=== PATIENT | female | born 1950 | race Caucasian/White ===

== ENCOUNTER → 2018-07-06 01:39 | Outpatient (CLI) | payer MEDICARE, OTHER, SELFPAY ==
--- NOTE | 2018-07-06 12:54 | DI.REPORT_ITS ---
SYMPTOM/DIAGNOSIS: SCREENING, Z12.31 BILATERAL SCREENING MAMMOGRAM: Mammograms were interpreted according to the usual protocol including computer analysis with CAD system, tomosynthesis and C view imaging. Comparison is made with exams from 2010 through 2016. The breasts are composed of extremely dense fibroglandular tissue breast density category D. No suspicious masses or suspicious microcalcifications are seen. There has been no significant change. IMPRESSION: Category 1-D, negative mammogram. Yearly screening mammography is recommended. [facility] ASSESSMENT OF FINDINGS: Negative. Category 1. Patient will receive a letter notifying them of these results. BI-RADS category D. The breasts are extremely dense, which lowers the sensitivity of mammography.
--- NOTE | 2018-07-06 12:54 | DI.REPORT_ITS ---
SYMPTOM/DIAGNOSIS: NECK PAIN CERVICAL SPINE: There are severe degenerative disc changes at C 4-5, C 5-6 and C 6-7. There are prominent facet degenerative changes, greatest at C 7-T 1 which causes mild spondylolisthesis. Moderate degenerative changes are seen at C 3-4. Neural foraminal narrowing is seen on the left at C 2-3 secondary to facet encroachment. Neural foraminal narrowing is seen on the right at C 4-5, C 5-6 and C 7-T 1. Degenerative changes are also noted at C 1-2. IMPRESSION: Severe degenerative disc changes and facet degenerative changes.
[2018-07-06 15:53] LABS: ALT 30 U/L (12-78); AST 33 U/L (15-37); Albumin 3.7 g/dL (3.4-5.0); Alkaline Phosphatase 100 U/L (46-116); Anion Gap 10.4 mmol/L (3-11); BUN 16 mg/dL (7-18); Bilirubin, Total 0.3 mg/dL (0.2-1.0); CO2 27.6 mmol/L (21.0-32.0); CREATININE 0.82 mg/dL (0.55-1.02); Calcium 8.9 mg/dL (8.5-10.1); Chloride 94 mmol/L (98-107); Cholesterol 167 mg/dL (50-200); Glucose 91 mg/dL (70-100); HDL Cholesterol 84 mg/dL (40-60); LDL CHOLESTEROL 72 mg/dL (<100); Potassium 3.6 mmol/L (3.5-5.1); Sodium 132 mmol/L (136-145); Total Protein 6.7 g/dL (6.4-8.2); Triglyceride 55 mg/dL (30-150)
== END ==
DX: M54.2 Cervicalgia (principal); M50.322 Other cervical disc degeneration at C5-C6 level; M47.813 Spondylosis without myelopathy or radiculopathy, cervicothoracic region; Z12.31 Encounter for screening mammogram for malignant neoplasm of breast; I10 Essential (primary) hypertension; Z13.220 Encounter for screening for lipoid disorders
CPT/HCPCS: 72050; 77063; 77067; 36415; 80053; 80061; 83721

== ENCOUNTER 2020-08-22 21:23 | Outpatient (REF) | payer MEDICARE, OTHER, SELFPAY ==
[2020-08-22 21:57] LABS: Bilirubin Negative (Negative); Blood Trace-intact (Negative); Clarity Clear (Clear); Glucose Negative (Negative); Ketones Negative (Negative); Leukocyte Esterase Trace (Negative); Nitrite Negative (Negative); Specific Gravity 1.015 (1.005-1.025); Urobilinogen 0.2 EU/dL (Up TO 0.2)
[2020-08-22 22:15] LABS: Bacteria Rare HPF (Negative); C & S Indicated? No; Casts Negative LPF (Negative); Crystals Negative HPF (Negative); Epithelial Cells Negative HPF (Negative); Mucus Negative (Negative); Other Cells Negative (Negative); RBC 0-2 HPF (0-2); WBC 0-2 HPF (0-5)
== END 2020-08-22 21:43 ==
LOC: LBN 21:23
DX: R35.0 Frequency of micturition (principal)
CPT/HCPCS: 81003; 81015

== ENCOUNTER 2022-03-13 04:21 | Outpatient (CLI) | payer MEDICARE, OTHER, SELFPAY ==
[2022-03-13 13:20] LABS: ALT 34 U/L (14-59); AST 34 U/L (15-37); Albumin 3.7 g/dL (3.4-5.0); Alkaline Phosphatase 102 U/L (46-116); Anion Gap 4.7 mmol/L (3-11); BUN 18 mg/dL (7-18); Bilirubin, Total 0.4 mg/dL (0.2-1.0); CO2 29.3 mmol/L (21.0-32.0); CREATININE 0.8 mg/dL (0.55-1.02); Calcium 8.8 mg/dL (8.5-10.1); Chloride 90 mmol/L (98-107); Glucose 78 mg/dL (74-106); Potassium 4.6 mmol/L (3.5-5.1); Total Protein 6.4 g/dL (6.4-8.2)
[2022-03-13 14:04] LABS: Sodium 124 mmol/L (136-145)
== END 2022-03-13 04:22 | disposition home or self-care (01) ==
DX: I10 Essential (primary) hypertension (principal); Z00.00 Encounter for general adult medical examination without abnormal findings
CPT/HCPCS: 36415; 80053

== ENCOUNTER 2022-06-10 04:29 | Outpatient (CLI) | payer MEDICARE, OTHER, SELFPAY ==
[2022-06-10 12:34] LABS: Anion Gap 8.1 mmol/L (3-11); BUN 21 mg/dL (7-18); CO2 27.9 mmol/L (21.0-32.0); CREATININE 0.9 mg/dL (0.55-1.02); Calcium 9.2 mg/dL (8.5-10.1); Chloride 100 mmol/L (98-107); Glucose 80 mg/dL (74-106); Potassium 3.8 mmol/L (3.5-5.1); Sodium 136 mmol/L (136-145)
== END 2022-06-10 04:30 | disposition home or self-care (01) ==
LOC: LOS 04:29
PROVIDERS: Visit Provider Family Medicine
DX: I10 Essential (primary) hypertension (principal)
CPT/HCPCS: 36415; 80048

== ENCOUNTER → 2023-06-27 16:56 | Outpatient (CLI) | payer MEDICARE, SELFPAY ==
--- NOTE | 2023-06-27 14:45 | DI.CT_ITS ---
Exam(s) CT ABDOMEN PELVIS W EXAM: CT ABDOMEN PELVIS W CLINICAL HISTORY: abdominal pain, R10.9. TECHNIQUE: Imaging Protocol: Axial computed tomography images with coronal and sagittal reformatted images were created and reviewed CONTRAST MATERIAL: Intravenous: Omnipaque 350 Contrast volume:100 ml Oral: Yes COMPARISON: No exams were available for comparison FINDINGS: The scanner stopped in the mid abdomen and had to be repeated The exam is limited by lack of intra-abdominal fat. ABDOMEN: Lung Bases: Normal where visualized. Liver: Normal density. No measurable mass. Gallbladder and biliary tract: No radiodense calculus or dilation. Pancreas: Normal density, no abnormal calcifications or inflammatory process. Spleen: Normal. Kidneys: Normal size, contour and axis. No radiodense stones or obstructive uropathy. Multiple bilat eral renal cysts. Hyperdense cysts noted anteriorly at the upper pole of the left kidney. No suspic ious masses seen. Adrenal glands: No masses seen. Abdominal Aorta: Abdominal portion non-dilated. Atherosclerotic changes. Calcification seen at the origins of the SMA and celiac axis moderate stenosis SMA. No definite stenosis celiac axis. No pos tstenotic dilatation. Soft tissues: Unremarkable. PELVIS: Bladder: No gross wall thickening. No calculi.No focal mass. Bowel: Question of small duodenal diverticulum descending duodenum. Mild diffuse dilatation of small bowel. No pneumatosis. No focal transition point. Contrast no longer present in proximal small wes wel and not well evaluated. Contrast in mid small bowel and colon. Appendix normal. Mild diverticu losis. No evidence of diverticulitis. Large quantity of stool. Peritoneal cavity: No ascites, collection or mesenteric inflammatory response. Bones: Degenerative changes Reproductive organs: Unremarkable for age. Lymph nodes: Unremarkable. Impression: Mild nonspecific small bowel dilatation may represent enteritis. No evidence of obstruction.. RADIATION DOSE DELIVERED: Total DLP DATA REPOSITORY: All CT scans at this facility are submitted to the National Radiology Data Registry (NRDR) Dose Index Registry (DIR) with the [employer] (ACR). RADIATION OPTIMIZATION: All CT scans at this facility use at least one of these dose optimization te chniques: automated exposure control; mA and/or kV adjustment per patient size (includes targeted exa ms where dose is matched to clinical indication); or iterative reconstruction.
[2023-06-27 15:30] LABS: Abs Immature Grans 0.04 10^3/uL (0.0-0.06); Absolute Basophil Count 0.02 10^3/uL (0.0-0.2); Absolute Eosinophil Count 0.02 10^3/uL (0.0-0.7); Absolute Lymphocyte Count 1.38 10^3/uL (1.2-3.4); Absolute Monocyte Count 0.68 10^3/uL (0.1-0.8); Absolute Neutrophil Count 7.75 10^3/uL (1.2-6.7); Basophils % 0.2; Eosinophils % 0.2; HCT 36.7 % (36.0-46.0); HGB 12.7 g/dL (11.2-15.7); Immature Grans % 0.4; MCH 31.7 pg (27.0-33.0); MCHC 34.6 % (32.0-36.0); MCV 92 fL (80-95); MPV 8.4 fL (8.0-11.0); Monocytes % 6.9; Neutrophils % 78.3; Platelet Count 301 10^3/uL (130-400); RBC 4.01 10^6/uL (3.93-5.22); RDW 13.1 % (11.7-14.6); RDW-SD 44.1 fL; WBC 9.89 10^3/uL (4.4-10.8)
[2023-06-27 15:46] LABS: ALT 24 U/L (14-59); AST 28 U/L (15-37); Albumin 3.7 g/dL (3.4-5.0); Alkaline Phosphatase 95 U/L (46-116); Anion Gap 8.1 mmol/L (3-11); BUN 10 mg/dL (7-18); Bilirubin, Total 0.3 mg/dL (0.2-1.0); CO2 26.9 mmol/L (21.0-32.0); CREATININE 0.9 mg/dL (0.55-1.02); Calcium 8.9 mg/dL (8.5-10.1); Calculated LDL 49 mg/dL (<100); Chloride 95 mmol/L (98-107); Cholesterol 134 mg/dL (<200); Estimated GFR 68.77 (mL/min/1.73m2); Glucose 97 mg/dL (74-106); HDL Cholesterol 74 mg/dL (40-60); Sodium 130 mmol/L (136-145); Total Protein 6.8 g/dL (6.4-8.2); Triglyceride 57 mg/dL (<150)
[2023-06-27 16:02] LABS: Lipase 79 U/L (16-77)
[2023-06-27] MEDS: Normal Saline - Diluent 50 ML VIAL IJ (17:29)
[2023-06-27] MEDS: Omnipaque 350 MG/ML 100 ML BTL IJ (17:31)
[2023-06-27] MEDS: Normal Saline Flush 10 ML SYR IVP (17:32)
[2023-06-27 17:52] LABS: Bilirubin Negative (Negative); Blood Trace-intact (Negative); Clarity Clear (Clear); Glucose Negative (Negative); Ketones Negative (Negative); Leukocyte Esterase Small (Negative); Nitrite Positive (Negative); Urobilinogen 0.2 mg/dL (Up to 0.2)
[2023-06-27 18:04] LABS: Epithelial Cells Few HPF (Negative); RBC 0-2 HPF (0-2)
[2023-06-27 18:05] LABS: Bacteria Many HPF (Negative); C & S Indicated? Yes; Casts Negative LPF (Negative); Crystals Negative HPF (Negative); Mucus Negative (Negative)
--- NOTE | 2023-06-27 18:09 | DI.VRAD_ITS ---
PROCEDURE INFORMATION: Exam: CT Abdomen And Pelvis With Contrast Exam date and time: 06/27/2023 5:15 PM Age: 72 years old Clinical indication: Abdominal tenderness; Patient HX: Abd pain TECHNIQUE: Imaging protocol: Computed tomography of the abdomen and pelvis with contrast. Contrast material: OMNIPAQUE 350; Contrast volume: 100 ml; Contrast route: INTRAVENOUS (IV); COMPARISON: No relevant prior studies available. FINDINGS: Lungs: Lung bases without acute infiltrates. Pleural spaces: No pleural effusion. Heart: Normal heart size. Right coronary artery atherosclerotic calcium is visible. Liver: Mild diffuse fatty liver change and mild hepatic enlargement. Gallbladder and bile ducts: Distended gallbladder. This is nonspecific and could reflect fasting status of patient. There is no biliary dilatation. The distal common bile duct is 4 mm. Pancreas: Pancreas without acute inflammation. Pancreatic duct maximal diameter of 3 mm. Spleen: The spleen is normal in size, contour and attenuation. Adrenal glands: The adrenal glands are normal in size and contour bilaterally. Kidneys and ureters: Bilateral kidneys with multiple benign cysts. Largest lesion is in the anterior upper pole of the left kidney measuring 20 mm. This single lesion has higher attenuation than the other bilateral cystic foci. An ultrasound of the kidneys is recommended to evaluate this anterior left renal focus and further evaluate it is composition. Stomach and bowel: Gastric morphology is unremarkable. No edema. No gastric outlet obstruction. Small bowel loops with scattered areas of moderate circumferential wall thickening. Mid jejunum with 11 mm wall thickness. These features suggest a small bowel enteritis. There is no pneumatosis intestinalis or evidence of ischemic change. Enteric contrast has passed through small bowel to large bowel loops. Large bowel loops without edema or obstructive changes. Appendix: No evidence of appendicitis. Intraperitoneal space: No free fluid or free air. Vasculature: Atherosclerotic aortoiliac calcium. No [place] aneurysm. Celiac artery atherosclerotic calcium without moderate to severe stenosis. Superior mesenteric artery atherosclerotic calcium with moderate stenosis at 40% diameter. Lymph nodes: Unremarkable. No enlarged lymph nodes. Urinary bladder: Urinary bladder is unremarkable in appearance. No wall thickening. No intravesicular calculi. No intravesicular gas. Reproductive: Previous hysterectomy. Bones/joints: Multilevel degenerative lumbar spine change. Severe spinal stenosis at L4-L5. See axial series 8, image 34. Soft tissues: Abdominal wall soft tissues with paucity of fat suggesting cachexia. IMPRESSION: 1. Small bowel thickening suggesting an enteritis process. No mechanical obstruction. No free fluid or free air. 2. Bilateral renal cysts. Indeterminate 2 cm left anterior upper pole renal lesion. Recommend renal ultrasound follow-up. 3. Previous hysterectomy. 4. Superior mesenteric artery and celiac artery origin stenotic changes 5. Degenerative lumbar spine. Severe spinal stenosis at L4-L5. Dictated and Authenticated by: Kt Figueroa MD. Ordering:AUDREY Richter MD
[2023-06-27 21:06] LABS: Bilirubin Negative (Negative); Blood Trace-intact (Negative); Clarity Clear (Clear); Glucose Negative (Negative); Ketones Negative (Negative); Leukocyte Esterase Small (Negative); Nitrite Positive (Negative); Specific Gravity 1.015 (1.005-1.025); Urobilinogen 0.2 mg/dL (Up to 0.2)
[2023-06-27 21:12] LABS: Bacteria Moderate HPF (Negative); C & S Indicated? Yes; Casts Negative LPF (Negative); Crystals Negative HPF (Negative); Epithelial Cells Few HPF (Negative); Mucus Negative (Negative)
== END ==
PROVIDERS: PCP Nurse Practitioner Family; Visit Provider Physician Assistant
DX: Z13.220 Encounter for screening for lipoid disorders (principal); I10 Essential (primary) hypertension; R10.9 Unspecified abdominal pain; R19.8 Other specified symptoms and signs involving the digestive system and abdomen; N39.0 Urinary tract infection, site not specified; B96.20 Unspecified Escherichia coli [E. coli] as the cause of diseases classified elsewhere
CPT/HCPCS: 80053; 80061; 83690; 87077; 74177; 81003; 81015; 85025; 87086; 87186; J3490

== ENCOUNTER 2024-08-23 16:10 | Outpatient (REF) | payer MEDICARE, SELFPAY ==
--- NOTE | 2024-08-23 13:35 | SKI_PTH ---
PATIENT: Briseyda Tian LOC: [facility] U#:[id number] AGE/SX: 74/F ROOM: RE08/23/[address]: El Rodrigues DNP : 1950 BED: DIS: 08/23/2024 SPEC #: [id number] RECD: 08/24/24 12:51 STATUS: SHANEKA REQ #: [id number] JESSIKA: 08/23/24 13:[address]: [facility] DEPT: Surgical Specimen RECD BY: Beth Garay Tissues: 1 - SKIN BIOPSY(SHAVE/PUNCH) Procedures: SKIN LEVEL 4 Comments: [id number]
== END 2024-08-23 16:11 | disposition home or self-care (01) ==
LOC: LBN 16:10
PROVIDERS: PCP Nurse Practitioner Family; Visit Provider Nurse Practitioner Family
DX: D04.61 Carcinoma in situ of skin of right upper limb, including shoulder (principal)
CPT/HCPCS: 88305

== ENCOUNTER 2024-09-24 15:25 | Outpatient (REF) | payer MEDICARE, SELFPAY ==
--- NOTE | 2024-09-24 15:00 | SKI_PTH ---
PATIENT: Briseyda Tian LOC: [facility] U#:[id number] AGE/SX: 74/F ROOM: RE09/24/[address]: El Rodrigues DNP : 1950 BED: DIS: 09/24/2024 SPEC #: [id number] RECD: 09/27/24 12:50 STATUS: SHANEKA REQ #: [id number] JESSIKA: 09/24/24 15:[address]: [facility] DEPT: Surgical Specimen RECD BY: Beth Garay Tissues: 1 - SKIN BIOPSY(SHAVE/PUNCH) Procedures: SKIN LEVEL 4 Comments: [id number]
== END 2024-09-24 15:26 | disposition home or self-care (01) ==
LOC: LBN 15:25
PROVIDERS: PCP Nurse Practitioner Family; Visit Provider Nurse Practitioner Family
DX: C44.629 Squamous cell carcinoma of skin of left upper limb, including shoulder (principal)
CPT/HCPCS: 88305

== ENCOUNTER 2025-05-10 18:32 | Outpatient (REF) | payer MEDICARE, SELFPAY ==
[2025-05-10 20:57] LABS: Abs Immature Grans 0.01 10^3/uL (0.0-0.06); Absolute Basophil Count 0.03 10^3/uL (0.0-0.2); Absolute Eosinophil Count 0.12 10^3/uL (0.0-0.7); Absolute Lymphocyte Count 1.55 10^3/uL (1.2-3.4); Absolute Monocyte Count 0.69 10^3/uL (0.1-0.8); Absolute Neutrophil Count 3.68 10^3/uL (1.2-6.7); Basophils % 0.5 %; HCT 37.4 % (36.0-46.0); Immature Grans % 0.2 %; Lymphocytes % 25.5 %; MCH 33.1 pg (27.0-33.0); MCHC 34.8 % (32.0-36.0); MCV 95 fL (80-95); MPV 9.1 fL (8.0-11.0); Monocytes % 11.3 %; Neutrophils % 60.5 %; Platelet Count 313 10^3/uL (130-400); RBC 3.93 10^6/uL (3.93-5.22); RDW 13.2 % (11.7-14.6); RDW-SD 46.3 fL; WBC 6.08 10^3/uL (4.4-10.8)
[2025-05-10 21:01] LABS: ESR 4 mm/hr (0-30)
[2025-05-10 21:21] LABS: ALT 30 U/L (14-59); AST 26 U/L (15-37); Albumin 3.7 g/dL (3.4-5.0); Alkaline Phosphatase 98 U/L (46-116); Anion Gap 7.2 mmol/L (3-11); BUN 22 mg/dL (7-18); Bilirubin, Total 0.3 mg/dL (0.2-1.0); CO2 27.8 mmol/L (21.0-32.0); CREATININE 0.9 mg/dL (0.55-1.02); Chloride 99 mmol/L (98-107); Estimated GFR 67.92 (mL/min/1.73m2); Glucose 114 mg/dL (74-106); Magnesium 2.1 mg/dL (1.8-2.4); Potassium 4.2 mmol/L (3.5-5.1); Sodium 134 mmol/L (136-145); TSH (W/Ref FT4) 2.36 uIU/mL (0.36-3.74); Total Protein 6.5 g/dL (6.4-8.2)
[2025-05-10 21:23] LABS: C-Reactive Protein < 0.50 mg/dL (<or=0.5)
[2025-05-12 11:26] LABS: Lyme Ab w Rflx to Lyme Confirm Positive (Negative)
[2025-05-12 14:38] LABS: Lyme IgG Ab Positive (Negative); Lyme IgM Ab Negative (Negative)
[2025-05-13 21:48] LABS: Anaplasma phagocytophilum Negative (Negative); B. miyamotoi PCR Negative (Negative); Babesia divergens/MO-1 Negative (Negative); Babesia duncani Negative (Negative); Babesia microti Negative (Negative); Ehrlichia chaffeensis Negative (Negative); Ehrlichia ewingii/canis Negative (Negative); Ehrlichia muris eauclairensis Negative (Negative)
== END 2025-05-10 18:33 | disposition home or self-care (01) ==
LOC: LBN 18:32
PROVIDERS: PCP Nurse Practitioner Family; Visit Provider Nurse Practitioner Family
DX: M79.18 Myalgia, other site (principal); R53.83 Other fatigue
CPT/HCPCS: 80053; 85652; 86617; 87798; 83735; 84443; 85025; 86140; 86618

== ENCOUNTER 2025-05-31 18:37 | Outpatient (REF) | payer MEDICARE, SELFPAY ==
--- NOTE | 2025-05-31 13:05 | SKI_PTH ---
PATIENT: Briseyda Tian LOC: [facility] U#:[id number] AGE/SX: 74/F ROOM: RE05/31/[address]: El Rodrigues DNP : 1950 BED: DIS: 05/31/2025 SPEC #: [id number] RECD: 06/01/25 13:00 STATUS: SHANEKA REQ #: [id number] JESSIKA: 05/31/25 13:[address]: [facility] DEPT: Surgical Specimen RECD BY: Beth Garay Tissues: 1 - SKIN BIOPSY(SHAVE/PUNCH) 2 - SKIN BIOPSY(SHAVE/PUNCH) 3 - SKIN BIOPSY(SHAVE/PUNCH) Procedures: SKIN LEVEL 4 Comments: [id number]
== END 2025-05-31 18:38 | disposition home or self-care (01) ==
LOC: LBN 18:37
PROVIDERS: PCP Nurse Practitioner Family; Visit Provider Nurse Practitioner Family
DX: L57.0 Actinic keratosis (principal)
CPT/HCPCS: 88305

== ENCOUNTER 2025-08-29 15:27 | Outpatient (REF) | payer MEDICARE, SELFPAY ==
[2025-08-29 18:04] LABS: Glucose Negative (Negative)
[2025-08-29 18:10] LABS: RBC 0-2 HPF (0-2); WBC Negative HPF (0-5)
== END 2025-08-29 15:28 | disposition home or self-care (01) ==
LOC: LBN 15:27
PROVIDERS: PCP Nurse Practitioner Family; Visit Provider Nurse Practitioner Family
DX: N39.0 Urinary tract infection, site not specified (principal)
CPT/HCPCS: 87077; 81003; 81015; 87086; 87186

== ENCOUNTER 2025-09-02 14:33 | Emergency (ER) | payer MEDICARE, SELFPAY ==
[2025-09-02 14:38] VITALS: BP 111/80; PULSE 98; RESP 16; TEMP 36.7; O2SAT 98
[2025-09-02 14:40] VITALS: BP 111/80; PULSE 98; RESP 16; TEMP 36.7; O2SAT 98
--- NOTE | 2025-09-02 14:45 | DI.CT_ITS ---
Exam(s) CT RENAL COLIC WO EXAM: CT RENAL COLIC WO CLINICAL HISTORY: uti. ?infected kidney stone. TECHNIQUE: Imaging Protocol: Axial computed tomography images with coronal and sagittal reformatted images were created and reviewed. COMPARISON: CT CT ABDOMEN PELVIS W from 06/27/2023 FINDINGS: Examination is limited by lack of IV contrast and paucity of abdominal fat. ABDOMEN: Lung Bases: Normal where visualized. Liver: Normal density. No measurable mass. Gallbladder and biliary tract: No radiodense calculus or biliary ductal dilation. Pancreas: Normal density, no abnormal calcifications or inflammatory process. Spleen: Normal. Kidneys: Normal size, contour and axis.No radiodense stones or obstructive uropathy. There are stable cysts seen in the kidneys bilaterally. This includes a hyperdense stable cyst in the anterior superior aspect of the left kidney. No follow-up is recommended. Adrenal glands: Is unchanged thickening of the limbs of the left adrenal gland. The right adrenal gland is unremarkable. Lymph nodes: Within normal limits. Abdominal Aorta: Abdominal portion non-dilated. Atherosclerotic calcification is present. PELVIS: Bladder:Symmetric distention, no gross wall thickening. Bowel: There is diverticulosis of the colon without evidence of acute diverticulitis. Evaluation of the bowel is significantly limited. No obvious bowel obstruction is seen. The air in the abdomen and pelvis appears to be intraluminal. No obvious evidence of appendicitis. Peritoneal cavity: No ascites, collection or mesenteric inflammatory response. No definite free air is identified. Reproductive organs: Unremarkable as visualized. Bones: Within normal limits. There is grade 1 anterolisthesis of L4 on L5 and L5 on S1 which is likely secondary to degenerative changes. There is no spondylolysis present. Soft Tissues: Within normal limits. IMPRESSION: 1. The exam is limited by lack of IV and oral contrast and the paucity of abdominal fat. 2. No definite nephrolithiasis or hydronephrosis. 3. No definite acute abdominal or pelvic process. However, if there is continued clinical concern a repeat examination with oral and IV contrast is recommended. RADIATION DOSE DELIVERED: 189.63mGy.cm Total DLP DATA REPOSITORY: All CT scans at this facility are submitted to the National Radiology Data Registry (NRDR) Dose Index Registry (DIR) with the [employer] (ACR). RADIATION OPTIMIZATION: All CT scans at this facility use at least one of these dose optimization techniques: automated exposure control; mA and/or kV adjustment per patient size (includes targeted exams where dose is matched to clinical indication); or iterative reconstruction.
--- NOTE | 2025-09-02 15:00 | W.ED.GENAD ---
Discharge Plan Disposition Patient Disposition: Home Condition: Stable Discharge Details Clinical Impression: UTI (urinary tract infection) Primary Care Provider: [facility] ED Provider: Miko Kahn Home Meds and New Rx's Prescriptions: New levofloxacin 750 mg tablet 750 mg PO DAILY Qty: 5 0RF Continued docusate sodium 100 mg capsule 100 mg PO DAILY PRN omega See Rx Instructions .ROUTE .COMPLEX Rx Instructions: 640mg daily ; fluoride (sodium) [PreviDent 5000 Plus] 1.1 % cream 1 applic dental DAILY Systane Ultra 0.4-0.3 % drops 1 drp ophthalmic (eye) DAILY PRN magnesium 250 mg tablet 250 mg PO DAILY amlodipine 5 mg tablet 5 mg PO DAILY Qty: 90 3RF multivitamin 1 EACH tablet 1 ea PO DAILY CALCIUM 600 + D TABLET 1 EACH tablet 1 ea PO DAILY acetaminophen [Arthritis Pain Reliever] 650 mg tablet extended release 1,300 mg PO clonidine HCl 0.1 mg tablet 0.1 mg PO BID Qty: 180 3RF losartan 50 mg tablet See Rx Instructions .ROUTE .COMPLEX Qty: 180 3RF Dose Instruction: TAKE ONE TABLET BY MOUTH TWICE A DAY Rx Instructions: TAKE ONE TABLET BY MOUTH TWICE A DAY Discontinued cephalexin 500 mg capsule 500 mg PO TID Qty: 21 0RF Discharge Instructions Additional Instructions: Your CAT scan did not show any evidence of a kidney stone. Your liver function test were mildly elevated. You should have this rechecked with your primary care provider. If you feel significantly more ill or have new symptoms such as persistent high fevers or persistent vomiting return to the emergency department for reevaluation. HPI General Date/Time Provider Initiated Documentation: 09/02/25 14:37. Limitations to Documentation: no limitations. Information obtained by: patient. History of Present Illness 75 year old F presents to the emergency department with the chief complaint of tired, fatigued, lack of appetite, dysuria , described as moderate, Patient started experiencing this day(s) (3) and it has been constant. No relieving factors improve symptom(s), No exacerbating factors reported . Patient notes fever/chills. Patient did receive the following treatments prior to arrival, none Related Data Home Medications ?Medication ?Instructions ?Recorded ?Confirmed Calcium 600 + D Tablet 1 ea PO DAILY 11/02/13 09/02/25 multivitamin 1 ea PO DAILY 11/02/13 09/02/25 acetaminophen 650 mg 1,300 mg PO 08/11/19 09/02/25 tablet,extended release (Arthritis Pain Reliever) omega See Rx Instructions .Route .COMPLEX 08/11/19 09/02/25 docusate sodium 100 mg capsule 100 mg PO DAILY PRN 06/05/24 09/02/25 fluoride (sodium) 1.1 % dental 1 applic dental DAILY 08/23/24 09/02/25 cream (PreviDent 5000 Plus) magnesium 250 mg tablet 250 mg PO DAILY 08/23/24 09/02/25 peg 400-propylene glycol 0.4 %-0.3 1 drp ophthalmic (eye) DAILY PRN 08/23/24 09/02/25 % eye drops (Systane Ultra) amlodipine 5 mg tablet 5 mg PO DAILY #90 tabs 04/04/25 09/02/25 clonidine HCl 0.1 mg tablet 0.1 mg PO BID #180 tabs 07/28/25 09/02/25 losartan 50 mg tablet See Rx Instructions .Route 08/25/25 09/02/25 .COMPLEX #180 tabs levofloxacin 750 mg tablet 750 mg PO DAILY #5 tabs 09/02/25 Previous Rx's ?Medication ?Instructions ?Recorded amlodipine 5 mg tablet 5 mg PO DAILY #90 tabs 04/04/25 clonidine HCl 0.1 mg tablet 0.1 mg PO BID #180 tabs 07/28/25 losartan 50 mg tablet See Rx Instructions .Route 08/25/25 .COMPLEX #180 tabs levofloxacin 750 mg tablet 750 mg PO DAILY #5 tabs 09/02/25 Allergies Allergy/AdvReac Type Severity Reaction Status Date / Time No Known Allergies Allergy Verified 09/02/25 14:40 General Stated Complaint: GenMedical SHARON: 4 Review of Systems All systems reviewed & are unremarkable except as noted in HPI and below Constitutional Constitutional: Reports chills, Reports fever(s) and Reports weakness Cardiovascular Cardiovascular: Denies chest pain and Denies dyspnea Respiratory Respiratory: Denies cough and Denies dyspnea Gastrointestinal Gastrointestinal: Denies abdominal pain and Reports nausea Genitourinary Genitourinary: Reports dysuria Neurologic Neurologic: Reports weakness Exam Const Orientation: alert HENTX Head: normal to inspection Ears: external ears normal General nose exam: external nose normal Mouth: moist mucous membranes Eyes General: appearance normal, both eyes and all related structures Neck Neck: normal visual inspection Resp Effort & Inspection: normal respiratory effort and able to speak in complete sentences Cardio Rate: regular rate GI Palpation: soft and nontender Back/Spine/Pelvis Back: no CVA tenderness Skin General skin exam: no rashes or lesions noted Neuro General: patient alert and patient oriented x3 Extrem General: normal to inspection Psych Mental Status: mental status grossly normal Course Vital Signs Vital signs: Vital Signs Temperature 36.7 C 09/02/25 14:38 Pulse 98 H 09/02/25 14:38 Respiratory Rate 16 09/02/25 14:38 Blood Pressure 111/80 09/02/25 14:38 Pulse Oximetry 98 09/02/25 14:38 Temperature 36.7 C 09/02/25 14:40 Pulse 98 H 09/02/25 14:40 Respiratory Rate 16 09/02/25 14:40 Blood Pressure 111/80 09/02/25 14:40 Pulse Oximetry 98 09/02/25 14:40 Pain Level 0 09/02/25 14:40 Lab/Test Results Lab/Test Results: 09/02/25 14:55 Blood Blood Culture - Pending 09/02/25 14:55 Blood Blood Culture - Pending Medical Decision Making 75-year-old female who is on cephalexin for 3 days for UTI diagnosed at her PCPs office comes in with feeling worse. She says she started with having fevers and chills when she was diagnosed with a UTI and has had progressive general malaise and fatigue and also lack of appetite and nausea. She denies any severe abdominal or back pain. Denies to me any chest pain. She has no CVA tenderness, no abdominal tenderness. I suspect pyelonephritis but given she is worsening on cephalexin I am concerned also for infected kidney stone. Will check CBC CMP lactate blood cultures and also CT renal colic to evaluate for possible kidney stone. Her culture from the other day is growing E. coli is pansensitive, given she has had no improvement on cephalexin we will give a dose of levofloxacin while studies are pending. Patient is feeling better, CT shows no any stone. Labs show elevation of LFTs which are new, she has no right upper quadrant tenderness and gallbladder and liver CT. I suspect she could also have a viral illness causing elevation of her LFTs. She is requesting discharge which I feel is reasonable. She will follow-up with her PCP and return precautions given. Differential Diagnosis Differential Diagnosis: pyelo, infected kidney stone PFSH All Active Problems (Updated 09/02/25 @ 17:14 by Miko Kahn MD) UTI (urinary tract infection) (Acute) Skin lesions (Acute) Fatigue (Acute) Myalgia (Acute) Squamous cell carcinoma of skin of left forearm (Acute) Hamstring muscle strain (Acute) Eczema (Acute) Hyponatremia (Acute) 2021, presumed secondary to HCTZ Urinary urgency (Acute) Smoking addiction (Chronic) 7-13 cigarettes per day 06/16. Tries not to smoke more than half pack Decreased body mass index (BMI) (Chronic) Chronic low back pain without sciatica (Chronic) Cervical back pain with evidence of disc disease (Chronic) Anxiety about health (Chronic) Hoarseness (Chronic 12/16/13) Essential hypertension (Chronic 10/25/15) Chronic obstructive lung disease (Chronic) Chronic laryngitis (Acute 12/22/13) 11/2013 - (Reinecke's edema)-quit smoking Medical History Dermatitis Family History Mother , age 81 Essential hypertension Heart disease Stroke COMA Throat cancer Father , age 79 Essential hypertension Heart disease Skin cancer Brother Essential hypertension Heart disease Social History (Updated 08/30/24 @ 14:38 by Fatou Lucero) Smoking/Tobacco Use Status: Current every day Tobacco Type: cigarettes Tobacco: How many years used: 57 Quit status: not considering quitting Second Hand Exposure: Yes Smoking risk assessment performed?: Yes Alcohol Intake: current Alcohol Intake frequency: 0-2 drinks per day Alcohol type: beer Drug use: Never Substance use type: does not use Counseling given: No Counseling provided: none Caregiver/Support person: No Household members: significant other Housing: house Communication Needs: None Do you need help understanding health information?: Rarely Pets and animals: Yes Pets and animals: cat(s) and dog(s) Sexually active: Yes Do you think of yourself as: straight/heterosexual Current gender identity: female What is your relationship status?: living with partner How often do you talk on the phone with friends or family?: once per week How often do you get together with friends or relatives?: once per week How often do you attend congregation or mandaen services?: decline to answer Do you belong to any clubs or organized social groups?: no Panel score (0-1 are the most socially isolated patients): 1 What type of physical activity do you participate in: walking and running Duration: 30-45 minutes/day Frequency: 5-6 times per week Dorothy/Christianity: Restoration Special dorothy needs: No Agree to transfusion: No Seatbelt use: always Drive intox or ride w/intox rickshaw driver: No
[2025-09-02 15:26] VITALS: RESP 20
[2025-09-02 15:31] LABS: Abs Immature Grans 0.02 10^3/uL (0.0-0.06); HCT 37.5 % (36.0-46.0); HGB 13.4 g/dL (11.2-15.7); MCH 31.6 pg (27.0-33.0); MCHC 35.7 % (32.0-36.0); MCV 88 fL (80-95); RBC 4.24 10^6/uL (3.93-5.22); RDW 12.8 % (11.7-14.6); RDW-SD 41.4 fL; WBC 5.70 10^3/uL (4.4-10.8)
[2025-09-02] MEDS: Normal Saline 1,000 ML 1000 ML IV (15:33)
[2025-09-02] MEDS: levoFLOXacin 750 MG/150 ML BAG 100 MG IVPB (15:33)
[2025-09-02 15:51] LABS: ALT 66 U/L (14-59); AST 62 U/L (15-37); Albumin 3.1 g/dL (3.4-5.0); Alkaline Phosphatase 239 U/L (46-116); Anion Gap 11.7 mmol/L (3-11); BUN 38 mg/dL (7-18); Bilirubin, Total 0.4 mg/dL (0.2-1.0); CO2 28.3 mmol/L (21.0-32.0); Calcium 9.0 mg/dL (8.5-10.1); Chloride 93 mmol/L (98-107); Estimated GFR 59.49 (mL/min/1.73m2); Glucose 114 mg/dL (74-106); Magnesium 2.1 mg/dL (1.8-2.4); Potassium 3.5 mmol/L (3.5-5.1); Sodium 133 mmol/L (136-145); Total Protein 6.7 g/dL (6.4-8.2)
[2025-09-02 15:55] LABS: MPV 11.1 fL (8.0-11.0); Platelet Count 74 10^3/uL (130-400)
[2025-09-02 15:56] LABS: RBC Morphology Normal
[2025-09-05 11:08] LABS: Hepatitis A Antibody IgM Negative (Negative); Hepatitis C Ab w Rflx HCV PCR Negative (Negative)
== END 2025-09-02 17:24 | disposition home or self-care (01) ==
PROVIDERS: Emergency Provider Emergency Medicine; PCP Nurse Practitioner Family
DX: N39.0 Urinary tract infection, site not specified (principal); R30.0 Dysuria; R53.83 Other fatigue
CPT/HCPCS: 36415; 80053; 86704; 86709; 86803; 87040; 87340; 96365; 96366; 99284; 74176; 83605; 83735; 85025; J1956

== ENCOUNTER 2025-09-03 14:43 | Emergency (ER) | payer MEDICARE, SELFPAY ==
[2025-09-03] VITALS (53 sets, daily range): BP systolic 97–171; BP diastolic 48–106; PULSE 58–127; RESP 10–29; TEMP 34–36.4; O2SAT 84–100
--- NOTE | 2025-09-03 14:45 | RT.EKG_ITS ---
APPROVED REPORT Exam: Resting ECG Reason for Exam: lethargy gi bleed dm Patient Location: E HR:81 bpm ECG Measurements Heart Rate 81 AXIS NE 141 P 84 QRSd 92 QRS 67 QT 380 T 46 QTc 442 Conclusion Sinus rhythm, rate 81 No interval abnormalities No STEMI LVH No priors available for comparison
--- NOTE | 2025-09-03 15:15 | DI.CT_ITS ---
Exam(s) CT ABD AORTA CTA W RUNOFF EXAM: CT ABD AORTA CTA W RUNOFF CLINICAL HISTORY: bloody stool, R>L leg pain w/o pulses. TECHNIQUE: Imaging Protocol: Axial CT angiography was performed with multi- slice acquisition and multi-planar and/or 3D reconstructions. CONTRAST MATERIAL: Intravenous: Omnipaque 350 Contrast volume:80 ml Contrast route:IV - Oral: / no COMPARISON: CT CT ABDOMEN PELVIS W from 06/27/[address] RENAL COLIC WO from 09/02/2025 FINDINGS: Vascular Structures: Heart: Normal size. No visible coronary artery calcifications. No pericardial effusion. Abdomen: Celiac [place]: Severe stenosis. SMA: Moderate stenosis. Renal Arteries: No significant stenosis. There is a single renal artery perfusing each kidney. Aorta: No aneurysm. No dissection. Pelvis: Iliac Arteries: Moderate stenosis at the proximal right external iliac artery. Mild stenosis at the left common iliac artery. Dilatation of the proximal left external iliac artery to 11 millimeters. Lower extremities: Right: Common Femoral: Mild stenosis. Superficial Femoral: Severe stenosis at the proximal superficial femoral artery with only a string of flow extending through the area of stenosis. There are areas of reconstitution via collaterals. The vessel appears occluded at the adductor canal. Popliteal: Severe stenosis of the popliteal artery. Knee Trifurcation: The anterior tibial artery is occluded proximally. Posterior Tibial: Areas of moderate stenosis. Peroneal: Narrow vessel diameter to the level of the ankle. Dorsalis Pedis: Not opacified. Left: Common Femoral: Mild stenosis. Profundus femoral is patent but shows moderate stenosis proximally.. Superficial Femoral: Moderate to severe stenosis proximally. Multifocal areas of severe stenosis along the length of the vessel. Popliteal: No significant stenosis. Knee Trifurcation: No significant stenosis. Posterior Tibial: No significant stenosis. Peroneal: No significant stenosis. Dorsalis Pedis: No significant stenosis. Soft Tissues: Lungs: No acute findings. Emphysematous changes. Liver: Extremely heterogeneous perfusion. Hepatic artery and portal veins appear patent. Some reflux of contrast into the hepatic veins. There appears to be periportal edema. No measurable mass. Gallbladder and biliary tract: No radiodense calculus or dilation. Pancreas: Somewhat atrophic. No abnormal calcifications or inflammatory process. Spleen: Normal. Kidneys: Normal size, contour and axis. No radiodense stones or obstructive uropathy. Bilateral simple cysts. No suspicious masses seen. Adrenal glands: No masses seen. Aorta: Abdominal portion non-dilated. Diffuse severe atherosclerotic calcification. Bladder: Symmetric distention, no gross wall thickening. Bowel: Evaluation limited by lack of intra-abdominal fat and oral contrast. There is high density material seen in the antrum of the stomach and duodenum which appears to represent vascular enhancement. GI bleed not excluded. No obstruction or bowel wall thickening. Liquid appearing stool could indicate diarrheal illness. Mild diverticulosis. Appendix is obscured. Peritoneal cavity: Limited evaluation due to paucity of fat. No ascites, collection or mesenteric inflammatory response. Bones: Degenerative changes in the lumbar spine. Reproductive: Unremarkable. IMPRESSION: Vascular enhancement noted in the antrum of the stomach and duodenum. GI bleed not excluded. Severe atherosclerotic disease with numerous regions of multifocal severe stenosis. Severe stenosis at the origin of the celiac axis. Severe stenosis of the bilateral superficial femoral arteries. Occlusion of the right superficial femoral artery in multiple locations. Severe stenosis of the popliteal artery. Severe disease involving the infrapopliteal region with flow seen only in the posterior tibial artery. Multifocal areas of stenosis in the left superficial femoral artery. Vessels appear patent below the knee to the level of the ankle. Inhomogeneous perfusion of the liver and periportal edema could be secondary to right heart failure however the heart does not appear enlarged. The preliminary [facility] report was reviewed. RADIATION DOSE DELIVERED: Total DLP DATA REPOSITORY: All CT scans at this facility are submitted to the National Radiology Data Registry (NRDR) Dose Index Registry (DIR) with the [employer] (ACR). RADIATION OPTIMIZATION: All CT scans at this facility use at least one of these dose optimization techniques: automated exposure control; mA and/or kV adjustment per patient size (includes targeted exams where dose is matched to clinical indication); or iterative reconstruction.
[2025-09-03] MEDS: Aspirin 81 MG CHEW 324 MG CH (15:32)
--- NOTE | 2025-09-03 15:45 | DI.RAD_ITS ---
Exam(s) XR PORTABLE CHEST AP POST LINE EXAM: XR PORTABLE CHEST AP POST LINE CLINICAL HISTORY: central line placed TECHNIQUE: 2D digital imaging was performed. Portable semi-erect COMPARISON: CR CHEST 2 VIEWS PA,LAT from 06/13/2015 FINDINGS: Multiple leads overlie the chest as well as oxygen tubing. A right internal jugular central venous catheter has been placed. The tip of the catheter lies in inferiorly at the level of the diaphragm. LUNGS: Clear. No pleural abnormality seen. HEART: Normal size. AORTA: Normal diameter. BONES: Degenerative changes and mild scoliosis in the thoracolumbar spine. Soft tissues: Unremarkable. IMPRESSION: Right internal jugular catheter projects inferiorly at the level of the diaphragm which is likely located within the inferior right atrium. No pneumothorax. The preliminary [facility] report was reviewed. DATA REPOSITORY: RADIATION DOSE DELIVERED:
[2025-09-03 16:20] LABS: Abs Immature Grans 0.06 10^3/uL (0.0-0.06); Immature Grans % 0.6 %; MCH 31.8 pg (27.0-33.0); MCHC 36.4 % (32.0-36.0); MCV 87 fL (80-95); MPV 11.5 fL (8.0-11.0); RBC 1.98 10^6/uL (3.93-5.22); RDW 12.9 % (11.7-14.6); RDW-SD 41.1 fL; WBC 9.98 10^3/uL (4.4-10.8)
--- NOTE | 2025-09-03 16:20 | W.ED.GENAD ---
Discharge Plan Disposition Patient Disposition: Transfer-Acute Inpatient Care Specific Acute Inpt Facility: [facility] Condition: Improving Discharge Details Clinical Impression: Acute lower gastrointestinal bleeding, Anemia due to GI blood loss, Hemorrhage requiring transfusion, ADALBERTO (acute kidney injury), Transaminitis Primary Care Provider: [place] ED Provider: Maranda Harris Home Meds and New Rx's Prescriptions: No Action docusate sodium 100 mg capsule 100 mg PO DAILY PRN omega See Rx Instructions .ROUTE .COMPLEX Rx Instructions: 640mg daily ; fluoride (sodium) [PreviDent 5000 Plus] 1.1 % cream 1 applic dental DAILY Systane Ultra 0.4-0.3 % drops 1 drp ophthalmic (eye) DAILY PRN magnesium 250 mg tablet 250 mg PO DAILY amlodipine 5 mg tablet 5 mg PO DAILY Qty: 90 3RF multivitamin 1 EACH tablet 1 ea PO DAILY CALCIUM 600 + D TABLET 1 EACH tablet 1 ea PO DAILY acetaminophen [Arthritis Pain Reliever] 650 mg tablet extended release 1,300 mg PO clonidine HCl 0.1 mg tablet 0.1 mg PO BID Qty: 180 3RF losartan 50 mg tablet See Rx Instructions .ROUTE .COMPLEX Qty: 180 3RF Dose Instruction: TAKE ONE TABLET BY MOUTH TWICE A DAY Rx Instructions: TAKE ONE TABLET BY MOUTH TWICE A DAY levofloxacin 750 mg tablet 750 mg PO DAILY Qty: 5 0RF HPI General Mode of arrival: ambulatory. Date/Time Provider Initiated Documentation: 09/03/25 14:56. Limitations to Documentation: no limitations. Information obtained by: patient, family and old records reviewed. HPI Narrative: This is a 75-year-old female patient with a history of COPD, hypertension, and a recent UTI, seen yesterday with a negative renal stone workup, presenting for evaluation of leg pain. She reports that last night her right leg and foot started hurting very badly. She is also having pain in the left side but to a lesser extent. This morning she had a large bowel movement with dark red blood, endorses some mild abdominal discomfort. Additionally she notes some pain on her tongue. She feels very cold, unwell, states that she was switched to a different antibiotic yesterday but has not yet picked it up. Related Data Home Medications ?Medication ?Instructions ?Recorded ?Confirmed Calcium 600 + D Tablet 1 ea PO DAILY 11/02/13 09/02/25 multivitamin 1 ea PO DAILY 11/02/13 09/02/25 acetaminophen 650 mg 1,300 mg PO 08/11/19 09/02/25 tablet,extended release (Arthritis Pain Reliever) omega See Rx Instructions .Route .COMPLEX 08/11/19 09/02/25 docusate sodium 100 mg capsule 100 mg PO DAILY PRN 06/05/24 09/02/25 fluoride (sodium) 1.1 % dental 1 applic dental DAILY 08/23/24 09/02/25 cream (PreviDent 5000 Plus) magnesium 250 mg tablet 250 mg PO DAILY 08/23/24 09/02/25 peg 400-propylene glycol 0.4 %-0.3 1 drp ophthalmic (eye) DAILY PRN 08/23/24 09/02/25 % eye drops (Systane Ultra) amlodipine 5 mg tablet 5 mg PO DAILY #90 tabs 04/04/25 09/02/25 clonidine HCl 0.1 mg tablet 0.1 mg PO BID #180 tabs 07/28/25 09/02/25 losartan 50 mg tablet See Rx Instructions .Route 08/25/25 09/02/25 .COMPLEX #180 tabs levofloxacin 750 mg tablet 750 mg PO DAILY #5 tabs 09/02/25 Previous Rx's ?Medication ?Instructions ?Recorded amlodipine 5 mg tablet 5 mg PO DAILY #90 tabs 04/04/25 clonidine HCl 0.1 mg tablet 0.1 mg PO BID #180 tabs 07/28/25 losartan 50 mg tablet See Rx Instructions .Route 08/25/25 .COMPLEX #180 tabs levofloxacin 750 mg tablet 750 mg PO DAILY #5 tabs 09/02/25 Allergies Allergy/AdvReac Type Severity Reaction Status Date / Time No Known Allergies Allergy Verified 09/02/25 14:40 General Stated Complaint: GenMedical SHARON: 2 Exam Narrative Exam Narrative: Gen: Awake and alert, cachectic, appears acutely ill HEENT: Non-icteric sclera, PERRL. There is a white exudate on her tongue, scrapes off easily with a tongue depressor. Posterior pharynx without erythema, swelling, or asymmetry Neck: Supple, full range of motion, no cervical spine tenderness Lungs: No significant respiratory distress but tachypnea is appreciated which the patient attributes to pain. Lung sounds clear and equal bilaterally CV: Appears very poorly perfused, weak radial pulses bilaterally, unable to palpate or Doppler bilateral DP pulses. Heart with regular rate and rhythm, no murmurs auscultated Abdomen: Non-distended, soft, tender to palpation without rigidity, rebound, guarding : Rectal examination supervised by LANRE Romero, revealing no external hemorrhoids, normal rectal tone, dark red blood on the glove MSK: Unable to wiggle right-sided toes, mottled skin bilateral lower extremities right greater than left Skin: Skin is cool, distal mottling. More pronounced in the lower extremities in the upper. Some cyanosis in the perioral region Neuro: No facial asymmetry. Weakness right lower extremity as noted above, otherwise no strength deficits. Endorses decreased sensation bilateral feet. Speaks in full, clear sentences. Psych: Appropriate for situation. Course Vital Signs Vital signs: Vital Signs Temperature 34.0 C L 09/03/25 14:48 Pulse 125 H 09/03/25 14:48 Respiratory Rate 10 L 09/03/25 14:48 Blood Pressure 139/91 H 09/03/25 14:48 Temperature 34.0 C L 09/03/25 14:48 Temperature Source Tympanic 09/03/25 14:48 Pulse 125 H 09/03/25 14:48 Respiratory Rate 10 L 09/03/25 14:48 Blood Pressure 139/91 H 09/03/25 14:48 Blood Pressure Position Sitting 09/03/25 14:48 Oxygen Delivery Method Room Air 09/03/25 14:48 Oxygen Flow Rate 0 09/03/25 14:48 Lab/Test Results Lab/Test Results: 09/03/25 16:07 Blood Blood Culture - Pending 09/03/25 15:01 Blood Blood Culture - Pending Laboratory Tests Range/Units 09/03/25 16:07 VBG Lactate (<or=2.0) mmol/L 4.8 H* Procedure Central Line Placement Date of Procedure: 09/03/25 Time of Procedure: 16:10 Provider that performed the procedure: Maranda Harris Indication: Emergent access Patient Consented: Verbally Standard Time Out Performed: Yes Sterility: Sterile Local Anesthetic: Lidocaine 1% Amount of anesthetic used(mL): 1 Laterality: Right Insertion Site: Internal Jugular (IJ) Central Line Type: Triple Lumen Catheter Insertion Procedure: 1% Lidocaine to skin and subcutaneous tissue with 25g needle, Vessel accessed with needle, Guidewire placed with ease, Dermatotomy (skin mayru) made with scalpel, Dilator placed without resistance, Introducer/Catheter placed without resistance, Guidewire removed and Claves placed, blood withdrawn, ports flushed and clamped Ultrasound: Used/Image Saved Number of Attempts(see previous attempts in note section): 1 Post Procedure: good blood return, all ports aspirated, flushed, capped and sutured in place with 2-0 silk Post Procedure X-Ray: tip of catheter in good position Dressing: Tegaderm applied Reason for Blood draw by Provider: RN/lab unable Procedure Tolerated: No Complications and Patient tolerated well Procedure Outcome: Successful Medical Decision Making This is a 75-year-old female patient presenting for evaluation of large-volume bloody stools, right greater than left bilateral leg pain with paresthesias and weakness, and evidence of poor perfusion and tachycardia. My differential includes but is not limited to GI bleed, patient has no history of severe alcohol use disorder or varices, considered upper and lower GI bleed, lower most likely given the color and volume. Etiologies considered include diverticular bleed, AVM, no hemorrhoids appreciated on JASVIR. Considered critical limb ischemia, aortic pathology including aneurysm, dissection, thrombosis, mesenteric ischemia, and associated metabolic derangements including anemia, thrombocytopenia, kidney injury, liver pathology, demand ischemia/ACS. The patient is very concerning the poorly perfused, we did place her on supplemental oxygen given her difficulty of obtaining a peripheral SpO2 reading. Vascular access unable to be obtained peripherally after multiple attempts by nursing, a central line was placed as noted above. The patient received a loading dose of aspirin given our concern for critical limb ischemia, she will be transported to to CT for emergent CTA abdomen and pelvis with bilateral lower extremity runoff EKG was obtained and reviewed by myself, showing a sinus rhythm with a rate in the 80s, with no evidence of ST segment elevation, interval abnormalities, or ectopy. No priors available for comparison. I do note voltage changes consistent with LVH. I reviewed laboratory studies as they became available, and compared them to the laboratory studies obtained during yesterday's ED visit. The patient has no leukocytosis but has had a 7 point hemoglobin drop over the last 24 hours, 6.3 down from 13. 2 units of PRBCs were crossmatched and transfused. She has a new thrombocytopenia to 71, initial lactate 4.8, and metabolic panel demonstrates an ADALBERTO with a BUN of 90 and a creatinine of 2.3, as well as a transaminitis with an AST of 639 and an ALT of 300. Calcium slightly low at 7.9, will provide the patient with calcium gluconate. Initial troponin borderline at 51, lipase is elevated to 329. A tick panel and blood cultures were sent and are pending at this time. CT reviewed by myself and I reviewed the radiology report. She has no evidence of aneurysm or dissection of the aorta but does have extensive mesenteric and lower extremity peripheral vascular stenosis/disease. She has evidence of layering products in the left colon concerning for blood given the clinical history. No active foci of extravasation appreciated. After transfusion of 2 units the patient's hemodynamics improved, blood pressure stabilized and her tachycardia resolved. She appears better perfused though her bilateral feet remain mottled. I did discuss this case with [facility] [place] [place], who declined, and [facility], who has graciously accepted her for transfer to their ICU. She did have several additional episodes of bloody stool while in the emergency department but remained much more clinically stable after initial transfusion. Repeat hemoglobin 8, lactate improved to 1.1. The patient will be transported by [facility] given our concern for ongoing active hemorrhage and the need for potential additional blood products. While awaiting the air crew, the patient did have an episode of tachycardia to the 130s, precipitated by attempting to move. She also had an additional large-volume bloody stool. Given the active ongoing blood loss an additional 2 units PRBCs were provided. Maranda Harris MD Critical Care Time Critical Care Time Critical Care Time: Yes Total Critical Care Time: 60 Attestation: Upon my evaluation, this patient had a high probability of imminent or life-threatening deterioration due to GI bleed requiring emergent transfusion, peripheral vascular disease, blood loss anemia, ADALBERTO, transaminitis, which required my direct attention, intervention, and personal management. I have personally provided 60 minutes of critical care time exclusive of time spent on separately billable procedures. Time includes review of laboratory data, radiology results, discussion with consultants, and monitoring for potential decompensation. Interventions were performed as documented above. Maranda Harris MD [facility] All Active Problems (Updated 09/03/25 @ 20:40 by Maranda Harris MD) Transaminitis (Acute) ADALBERTO (acute kidney injury) (Acute) Hemorrhage requiring transfusion (Acute) Anemia due to GI blood loss (Acute) Acute lower gastrointestinal bleeding (Acute) UTI (urinary tract infection) (Acute) Skin lesions (Acute) Fatigue (Acute) Myalgia (Acute) Squamous cell carcinoma of skin of left forearm (Acute) Hamstring muscle strain (Acute) Eczema (Acute) Hyponatremia (Acute) 2021, presumed secondary to HCTZ Urinary urgency (Acute) Smoking addiction (Chronic) 7-13 cigarettes per day 06/16. Tries not to smoke more than half pack Decreased body mass index (BMI) (Chronic) Chronic low back pain without sciatica (Chronic) Cervical back pain with evidence of disc disease (Chronic) Anxiety about health (Chronic) Hoarseness (Chronic 12/16/13) Essential hypertension (Chronic 10/25/15) Chronic obstructive lung disease (Chronic) Chronic laryngitis (Acute 12/22/13) 11/2013 - (Reinecke's edema)-quit smoking Medical History Dermatitis Family History Mother , age 81 Essential hypertension Heart disease Stroke COMA Throat cancer Father , age 79 Essential hypertension Heart disease Skin cancer Brother Essential hypertension Heart disease Social History (Updated 08/30/24 @ 14:38 by Fatou Lucero) Smoking/Tobacco Use Status: Current every day Tobacco Type: cigarettes Tobacco: How many years used: 57 Quit status: not considering quitting Second Hand Exposure: Yes Smoking risk assessment performed?: Yes Alcohol Intake: current Alcohol Intake frequency: 0-2 drinks per day Alcohol type: beer Drug use: Never Substance use type: does not use Counseling given: No Counseling provided: none Caregiver/Support person: No Household members: significant other Housing: house Communication Needs: None Do you need help understanding health information?: Rarely Pets and animals: Yes Pets and animals: cat(s) and dog(s) Sexually active: Yes Do you think of yourself as: straight/heterosexual Current gender identity: female What is your relationship status?: living with partner How often do you talk on the phone with friends or family?: once per week How often do you get together with friends or relatives?: once per week How often do you attend synagogue or bahai services?: decline to answer Do you belong to any clubs or organized social groups?: no Panel score (0-1 are the most socially isolated patients): 1 What type of physical activity do you participate in: walking and running Duration: 30-45 minutes/day Frequency: 5-6 times per week Dorothy/Yazidism: Christianity Special dorothy needs: No Agree to transfusion: No Seatbelt use: always Drive intox or ride w/intox moving van driver: No
[2025-09-03 16:22] LABS: HCT 17.3 % (36.0-46.0); HGB 6.3 g/dL (11.2-15.7)
[2025-09-03] MEDS: Omnipaque 350 MG/ML 100 ML BTL IJ (16:28)
[2025-09-03] MEDS: Normal Saline Flush 10 ML SYR IVP (16:29)
[2025-09-03] MEDS: Normal Saline - Diluent 50 ML VIAL IJ (16:29)
[2025-09-03 16:32] LABS: INR 1.2 (0.9-1.1); Prothrombin Time 12.1 sec (9.1-11.1)
[2025-09-03] MEDS: HYDROmorphone 2 MG/ML SYR 0.5 MG IVP ×2 (16:36→19:42)
[2025-09-03 16:37] LABS: ALT 300 U/L (14-59); AST 639 U/L (15-37); Albumin 2.6 g/dL (3.4-5.0); Alkaline Phosphatase 139 U/L (46-116); Anion Gap 16.4 mmol/L (3-11); Bilirubin, Total 0.4 mg/dL (0.2-1.0); CO2 20.6 mmol/L (21.0-32.0); Calcium 7.9 mg/dL (8.5-10.1); Chloride 97 mmol/L (98-107); Estimated GFR 21.90 (mL/min/1.73m2); Glucose 111 mg/dL (74-106); Lipase 329 U/L (<78); Magnesium 2.9 mg/dL (1.8-2.4); Potassium 4.3 mmol/L (3.5-5.1); Sodium 134 mmol/L (136-145); Total Protein 5.0 g/dL (6.4-8.2)
[2025-09-03 16:44] LABS: BUN 90 mg/dL (7-18)
[2025-09-03 16:51] LABS: Platelet Count 71 10^3/uL (130-400)
[2025-09-03] MEDS: Pantoprazole 40 MG VIAL 80 MG IVP (16:56)
[2025-09-03 16:57] LABS: Troponin I 51 ng/L (<or=51)
--- NOTE | 2025-09-03 16:59 | DI.[facility]_ITS ---
PROCEDURE INFORMATION: Exam: XR Chest Exam date and time: 09/03/2025 4:06 PM Age: 75 years old Clinical indication: Other: Central line placed TECHNIQUE: Imaging protocol: Radiologic exam of the chest. Views: 1 view. COMPARISON: CT RENAL COLIC WO 09/02/2025 4:07 PM FINDINGS: Tubes, catheters and devices: Right IJ central line with its tip in the inferior right atrium. Lungs: Bilateral moderate to severe hyperinflation suggesting underlying emphysema/COPD. No focal lung consolidation. Calcified granulomatous appearing nodule of the left lung base measuring 7 mm. Pleural spaces: No pleural effusion. No pneumothorax. Heart/Mediastinum: Normal heart size. No mediastinal widening. Bones/joints: Degenerative thoracic spine features. IMPRESSION: 1. Right IJ central line extending into the inferior right atrium. 2. No pleural effusion. No pneumothorax. 3. Emphysema/COPD. 4. Degenerative thoracic spine. Dictated and Authenticated by: Kt Figueroa MD. Orderin St. Sachin Low MD
--- NOTE | 2025-09-03 17:16 | DI.VRAD_ITS ---
PROCEDURE INFORMATION: Exam: CTA Abdominal Aorta and Bilateral Lower Extremities (Run-off) With Contrast Exam date and time: 09/03/2025 4:06 PM Age: 75 years old Clinical indication: Other: Bloody stool, r>l leg pain w/o pulses; Additional info: Central line placed TECHNIQUE: Imaging protocol: Computed tomographic angiography of the of the abdominal aorta, pelvis and bilateral lower extremities with contrast. 3D rendering (Not supervised by radiologist): MIP and/or 3D reconstructed images were created by the technologist. COMPARISON: CT RENAL COLIC WO 09/02/2025 4:07 PM FINDINGS: Aorta: Abdominal aorta atherosclerotic calcium. No aortic stenosis. No [place] aneurysmal features. Mid infrarenal abdominal aorta is 20 x 19 mm. Descending thoracic aorta at the diaphragmatic hiatus 25 x 23 mm. 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 Superior mesenteric artery proximal atherosclerotic calcium with 40% diameter moderate stenosis. Renal arteries: Right renal artery origin atherosclerotic calcium without significant stenosis. Left renal artery origin atherosclerotic calcium without significant stenosis. Right iliac arteries: Right iliac artery atherosclerotic calcium. 50% diameter moderate stenosis from eccentric calcium of the proximal right external iliac artery. Right femoral/popliteal arteries: Right common femoral artery 30% diameter mild stenosis. Right deep femoral artery is patent. Right superficial femoral artery with a proximal severe stenosis and a string sign of flow just after the takeoff of the vessel. There are some regions of segmental reconstitution. The vessel is occluded at the adductor canal. Right popliteal artery short focal reconstitution. String sign of flow. Right infrapopliteal arteries: Right tibioperoneal trunk diminutive in size and patent. Right infrapopliteal trifurcation arteries with atherosclerotic calcium. Anterior tibial artery occludes proximally. Peroneal artery with diminutive flow to the level of the ankle. Posterior tibial artery with scattered atherosclerotic calcifications and moderate stenotic segments. There is patency of the vessel at the plantar aspect of the foot. Right dorsalis pedis artery does not opacify. Left iliac arteries: Left common iliac artery 30% diameter mild stenosis. 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 Left femoral/popliteal arteries: Left common femoral artery 30% diameter mild stenosis. Left deep femoral artery is patent with proximal atherosclerotic calcium and 50% diameter moderate stenosis. Left superficial femoral artery proximal 70% diameter severe stenosis. There are multifocal areas of severe stenosis and string sign. No occlusion. Left popliteal artery is patent. Left infrapopliteal arteries: Left infrapopliteal trifurcation arteries with scattered atherosclerotic calcium and three-vessel runoff. Dorsalis pedis artery is noted to opacify. Lungs: Lung base features of emphysema and bronchiectasis consistent with a component of COPD. No consolidation. Pleural spaces: No pleural effusion. Heart: Normal heart size. No pericardial effusion. No visible coronary artery atherosclerotic calcium. Liver: Hepatomegaly. Heterogeneity of the liver. This is likely in part due to areas of fatty infiltration. There also appears to be a component of reflux of contrast in the right atrium into the hepatic veins likely representing a component of right heart failure. This appears to be causing some periportal edema. Gallbladder and biliary ducts: The gallbladder is normal in size and shape. No stones or inflammatory changes. Pancreas: Moderate pancreatic atrophy. No acute change. Spleen: The spleen is normal in size, contour and attenuation. Adrenal glands: The adrenal glands are normal in size and contour bilaterally. Kidneys and ureters: No acute renal change. Bilateral benign renal cysts.No further imaging follow-up of the renal cysts is recommended based on MIPS criteria.. Upper pole left renal cyst is 21 mm. Anterior midpole left renal cyst is 20 mm. Largest right renal cyst is subcentimeter in size. Stomach and bowel: Gastric morphology is unremarkable. No edema. No gastric outlet obstruction. Small bowel loops without obstruction or [place] edema. Large bowel is unremarkable in course and caliber. Large bowel fecal contents are predominantly liquid suggesting a diarrheal process. In the mid descending colon there is hyperdense material layering posteriorly. See series 9: Images 29 and adjacent slices. Can not exclude a region of GI bleed in the left colon. Appendix: No evidence of appendicitis. Urinary bladder: Unremarkable. No mass. Reproductive: Unremarkable as visualized. Intraperitoneal space: Unremarkable. No free air. No significant fluid collection. Lymph nodes: No lymphadenopathy. Bones/joints: No acute skeletal pathology. Degenerative lumbar spine features. Soft tissues: Soft tissues of the abdominal wall, pelvic wall, and lower extremities are unremarkable. No acute changes. IMPRESSION: 1. Mid descending colon layering hyperdense material which could be extravasated contrast. Can not exclude a GI bleed in the left colon. Series 9: Image 29. 2. Lung base features of emphysema and COPD. 3. Hepatic heterogeneity suggesting regions of fatty change. There also appears to be periportal edema which may represent a component of right heart failure. 4. Bilateral multifocal benign renal cysts. 5. Abdominal aorta atherosclerotic features. No critical stenosis. No aneurysmal features. 6. Celiac artery origin severe stenosis. Superior mesenteric artery origin moderate stenosis. 7. Moderate right iliac artery stenosis. 8. 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 9. Bilateral common femoral artery moderate to severe stenotic features. 10. Bilateral superficial femoral artery multifocal severe stenotic changes. Right superficial femoral artery with occluded segments. 11. Right popliteal artery subtotal occlusion. 12. Right infrapopliteal trifurcation vessels with single vessel runoff via the posterior tibial artery. 13. Left superficial femoral artery multifocal high-grade stenoses and distal string sign of flow. 14. Left popliteal artery mild stenotic features. 15. Left infrapopliteal trifurcation arteries with multifocal atherosclerotic features and three-vessel runoff. 16. Degenerative lumbar spine. 17. No free fluid or free air in the abdomen or pelvis. Dictated and Authenticated by: Kt Figueroa MD. Orderin St. Sachin Low MD
--- NOTE | 2025-09-03 17:29 | NUR.NOTE ---
Nursing Note: PT pal, weak on arrival, decreased pedal pulses bilat. pale painful extremities
--- NOTE | 2025-09-03 19:18 | NUR.NOTE ---
Nursing Note: PT pleasant, alert and oriented at this time. had x2 large watery dark red stools. Bilat Pedal pulses absent at this time. Pulses heard with Doppler bilat popliteal.
[2025-09-03 19:21] LABS: HCT 22.7 % (36.0-46.0); HGB 8.1 g/dL (11.2-15.7)
--- NOTE | 2025-09-03 19:27 | NUR.NOTE ---
Received report from Heather DE DIOS at pt bedside. Pt participating in handoff, providing information on condition. CVC in place in R IJ, dressing clean and intact. Blood transfusion currently running at 200mL/hr. Pt did not express any needs at time of report.
[2025-09-03] MEDS: Calcium Gluconate 4.65 MEQ/10 ML VIAL 4.65 MG IVP (20:50)
[2025-09-03 21:44] LABS: Troponin I 55 ng/L (<or=51)
--- NOTE | 2025-09-03 21:50 | NUR.NOTE ---
Code blood administered at 2120. 2 units started together @ 150mL/hr per physician's order. Vital signs before and during documented. No reaction noted during transfusion. Unit numbers: [id number] and [id number].
[2025-09-03 21:55] LABS: Glucose Negative (Negative)
[2025-09-03 22:06] LABS: C & S Indicated? No
[2025-09-05 12:48] LABS: Lyme Ab w Rflx to Lyme Confirm Positive (Negative)
[2025-09-05 15:36] LABS: Lyme IgG Ab Positive (Negative)
--- NOTE | 2025-09-06 11:09 | NUR.NOTE ---
Faxed labs to [facility] ICU. ICU revived. Nursing Note:
[2025-09-08 01:22] LABS: B. miyamotoi PCR Negative (Negative); Babesia divergens/MO-1 Negative (Negative); Ehrlichia muris eauclairensis Negative (Negative)
--- NOTE | 2025-09-08 02:06 | NUR.NOTE ---
Nursing Note: Accessed patients chart after receiving critical lab results from [facility]. Contacted [facility] transfer center as the patient was transferred from our facility to [place] [id number] at [facility] on 09/03/25. Results were faxed.
--- NOTE | 2025-09-08 10:10 | ED.FU.B_ITS ---
Follow Up Plan: anaplasmosis +, pt at [facility] confirmed, discussed and sent + lab sheet to [facility] for treatment
--- NOTE | 2025-09-08 10:10 | W.ED.FU ---
Follow Up Plan: anaplasmosis +, pt at [facility] confirmed, discussed and sent + lab sheet to [facility] for treatment
== END 2025-09-03 22:47 | disposition short-term general hospital (02) ==
PROVIDERS: Emergency Provider Emergency Medicine; PCP Nurse Practitioner Family
DX: K92.2 Gastrointestinal hemorrhage, unspecified (principal); R58 Hemorrhage, not elsewhere classified; D50.0 Iron deficiency anemia secondary to blood loss (chronic); N17.9 Acute kidney failure, unspecified; R74.01 Elevation of levels of liver transaminase levels
CPT/HCPCS: 36415; 36416; 36430; 36556; 51702; 71045; 75635; 76937; 80053; 82962; 83690; 86617; 86850; 86900; 86901; 86920; 86945; 87040; 87798; 93005; 96374; 96375; 96376; 99291; 81003; 81015; 83605; 83735; 84484; 85014; 85018; 85025; 85610; 86618; 93010; J0612; J1171; J2470; J3490; P9016